=== PATIENT | female | born 1975 | race Caucasian/White ===

== ENCOUNTER 2017-10-19 13:12 | Emergency (ER) | payer SELFPAY ==
[2017-10-19] MEDS ORDERED: methylPREDNISolone Sod Succ/PF 125 MG/2 ML VIAL ONE (15:06)
[2017-10-19] MEDS ORDERED: Water For Inject, Bacteriostat 30 ML ONE (15:08)
--- NOTE | 2017-10-19 15:28 | RAD ---
PA AND LATERAL VIEWS CHEST: Date: 10/19/17 HISTORY: Cough, body aches. FINDINGS: The heart size is normal. The lungs are well expanded without focal areas of consolidation, pneumotho rax, or pleural effusions. IMPRESSION: No radiographic evidence of acute cardiopulmonary process. POS: [facility]
== END 2017-10-19 15:58 | disposition home or self-care (01) ==
LOC: ERS 13:12
DX: J11.1 Influenza due to unidentified influenza virus with other respiratory manifestations (principal); F43.10 Post-traumatic stress disorder, unspecified; F17.210 Nicotine dependence, cigarettes, uncomplicated
CPT/HCPCS: 71020; 96372; J2930